=== PATIENT | female | born 1970 | race Caucasian/White ===

== ENCOUNTER → 2019-03-16 | Outpatient (CLI) | payer BC, OTHER ==
[~2019-03-16] MED LIST: BENZONATATE100 MG PO; CIPRO250 M1 PO; ENDOCET 5-3251 EACH PO; HYDROCODON-ACE1 EAC7 PO; LOSARTAN-HCTZ1 EACH PO; NAPROSYN500 MG PO; NORCO 5-325 TA1 EACH PO; OMEPRAZOLE40 MG PO; PROAIR HFA8.5 GM IH; ZOLOFT50 MG PO
== END ==
LOC: CAT 15:55
DX: K76.89 Other specified diseases of liver (principal); N83.201 Unspecified ovarian cyst, right side; Z90.49 Acquired absence of other specified parts of digestive tract; Z90.710 Acquired absence of both cervix and uterus

== ENCOUNTER → 2020-08-12 | Outpatient (CLI) | payer BC, OTHER | LOC: LAB 09:54 | PROVIDERS: ATTEND Nurse Practitioner | DX: J02.9 Acute pharyngitis, unspecified (principal); R09.81 Nasal congestion; Z20.822 Contact with and (suspected) exposure to COVID-19 ==